=== PATIENT | male | born 1965 | race Caucasian/White ===

== ENCOUNTER 2017-06-02 16:05 | Emergency (ER) | payer BC ==
[2017-06-02 16:16] VITALS: BP 132/68; PULSE 76; RESP 18; TEMP 97.9; O2SAT 99
--- NOTE | 2017-06-02 17:46 | C.PDOC ---
History Of Present Illness 52 y/o male presents to ED for evaluation status post bumping back of head 2 days ago while at work. Patient reports normal po intake and denies loc, nausea , vomiting, vision changes or any other complaints at this time. - HPI Chief Complaint (Nursing): Trauma History Per: Patient History/Exam Limitations: no limitations Onset/Duration Of Symptoms: Days Past Medical History Reviewed: Historical Data, Nursing Documentation, Vital Signs Vital Signs: Last Vital Signs Temp 97.9 F 06/02/17 16:13 Pulse 76 06/02/17 16:13 Resp 18 06/02/17 16:13 BP 132/68 06/02/17 16:13 Pulse Ox 99 06/02/17 17:47 - Medical History PMH: No Chronic Diseases Surgical History: No Surg Hx Family History: States: No Known Family Hx - Social History Hx Alcohol Use: No Hx Substance Use: No - Immunization History Hx Tetanus Toxoid Vaccination: Yes Hx Influenza Vaccination: No Hx Pneumococcal Vaccination: No Review Of Systems Constitutional: Negative for: Fever, Chills Eyes: Negative for: Vision Change Gastrointestinal: Negative for: Nausea, Vomiting Skin: Negative for: Rash Neurological: Positive for: Headache. Negative for: Weakness, Numbness, Dizziness Physical Exam - Physical Exam Appears: Non-toxic, No Acute Distress Skin: Normal Color, Warm, Dry, No Rash Head: Atraumatic, Normacephalic, No Swelling, No Abrasion Eye(s): bilateral: Normal Inspection, PERRL, EOMI Oral Mucosa: Moist Chest: Symmetrical Cardiovascular: Rhythm Regular Respiratory: Normal Breath Sounds, No Rales, No Rhonchi, No Wheezing Gastrointestinal/Abdominal: Soft, No Tenderness, No Guarding, No Rebound Extremity: Normal ROM, Capillary Refill (<2 seconds) Neurological/Psych: Oriented x3, Normal Speech, Normal Cognition, Normal Motor, Normal Sensation Gait: Steady ED Course And Treatment O2 Sat by Pulse Oximetry: 99 (RA) Pulse Ox Interpretation: Normal Disposition - Disposition Referrals: [facility] [Outside] [facility] [Outside] Disposition: HOME/ ROUTINE Disposition Time: 16:30 Condition: GOOD Additional Instructions: Thank you for letting us take care of you today. The emergency medical care you received today was directed at your acute symptoms. If you were prescribed any medication, please fill it and take as directed. It may take several days for your symptoms to resolve. Return to the Emergency Department if your symptoms worsen, do not improve, or if you have any other problems. Please contact your doctor or call one of the physicians/clinics you have been referred to that are listed on the Patient Visit Information form that is included in your discharge packet. Bring any paperwork you were given at discharge with you along with any medications you are taking to your follow up visit. Our treatment cannot replace ongoing medical care by a primary care provider (PCP) outside of the emergency department. Thank you for allowing the [facility] team to be part of your care today. Follow up with your doctor in 3-5 days for outpatient care and management. Instructions: Head Injury (ED) Forms: Gen Discharge Inst Nepali Print Language: UKRAINIAN - Clinical Impression Clinical Impression: Head contusion - Scribe Statement The provider has reviewed the documentation as recorded by the Camilaibdelmi Griffin All medical record entries made by the Camilaibdelmi were at my direction and personally dictated by me. I have reviewed the chart and agree that the record accurately reflects my personal performance of the history, physical exam, medical decision making, and the department course for this patient. I have also personally directed, reviewed, and agree with the discharge instructions and disposition.
== END 2017-06-02 16:49 | disposition home or self-care (01) ==
LOC: C.ER 16:05
DX: S00.93XA Contusion of unspecified part of head, initial encounter (principal); W22.8XXA Striking against or struck by other objects, initial encounter; Y99.0 Civilian activity done for income or pay

== ENCOUNTER 2018-06-03 08:39 | Observation (INO) | payer BC ==
[2018-06-03 09:03] VITALS: BMI 25.0
--- NOTE | 2018-06-03 10:54 | C.PDOC ---
History Of Present Illness 53 year old male presents to the ED for evaluation of left calf pain which began three days ago. 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 Patient denies recent falls, direct injury/trauma to the area, or extremity numbness/weakness. Time Seen by Provider: 06/03/18 09:17 Chief Complaint (Nursing): Lower Extremity Problem/Injury History Per: Patient History/Exam Limitations: no limitations Onset/Duration Of Symptoms: Days (3) Current Symptoms Are (Timing): Still Present Additional History Per: Patient Past Medical History Reviewed: Historical Data, Nursing Documentation, Vital Signs Vital Signs: Last Vital Signs Temp 98.7 F 06/03/18 09:02 Pulse 90 06/03/18 09:02 Resp 18 06/03/18 09:02 BP 147/78 06/03/18 09:02 Pulse Ox 98 06/03/18 09:02 - Medical History PMH: Hypercholesterolemia (no meds as per patient) Surgical History: No Surg Hx Family History: States: Unknown Family Hx - Social History Hx Alcohol Use: No Hx Substance Use: No - Immunization History Hx Tetanus Toxoid Vaccination: Yes Hx Influenza Vaccination: No Hx Pneumococcal Vaccination: No Review Of Systems Musculoskeletal: Positive for: Other (left calf pain ) Neurological: Negative for: Weakness, Numbness Physical Exam - Physical Exam Appears: Non-toxic, No Acute Distress Skin: Normal Color, Warm, Dry, No Ecchymosis Extremity: Normal ROM, No Pedal Edema, Capillary Refill (less than 2 seconds ), Other (tenderness and edema to left medial calf ) Neurological/Psych: Oriented x3, Normal Speech, Normal Cognition, Normal Sensation ED Course And Treatment - Laboratory Results Result Diagrams: 06/03/18 11:48 06/03/18 11:48 Lab Interpretation: Abnormal (D-dimer 714 H) ECG: Interpreted By Nv ECG Rhythm: Sinus Rhythm ECG Interpretation: Normal Rate From EC O2 Sat by Pulse Oximetry: 98 (on RA) Pulse Ox Interpretation: Normal - Radiology CXR: Interpreted by Me CXR Interpretation: Yes: No Acute Disease Progress Note: Venous Duplex Scan of left lower extremity ordered and reviewed. Motrin PO given. Reevaluation Time: 12:22 Reassessment Condition: Improved - Physician Consult Information Outcome Of Conversation: 1215: d/w , Hospitalist covering pts for geoffrey Le to admit. Medical Decision Making Medical Decision Making: L leg DVT, unprovoked lovenox consider hypercoagulable w/u or underlying CA Disposition Doctor Will See Patient In The: Hospital Counseled Patient/Family Regarding: Studies Performed, Diagnosis - Disposition Disposition: HOSPITALIZED Disposition Time: 12:24 Condition: GOOD Forms: [facility] (Yakut) - Clinical Impression Clinical Impression: Deep venous thrombosis of lower extremity - Scribe Statement The provider has reviewed the documentation as recorded by the Scribe (Maite Gustafson) Provider Attestation: All medical record entries made by the Scribe were at my direction and personally dictated by me. I have reviewed the chart and agree that the record accurately reflects my personal performance of the history, physical exam, medical decision making, and the department course for this patient. I have also personally directed, reviewed, and agree with the discharge instructions and disposition.
[2018-06-03] MEDS ORDERED: Enoxaparin 40 mg Syringe SC STA (11:29)
[2018-06-03] MEDS ORDERED: Enoxaparin 40 mg Syringe ONE (11:52)
[2018-06-03] MEDS ORDERED: Enoxaparin 30 mg Syringe ONE (11:52)
[2018-06-03 12:00] LABS: BASO # 0.1 K/uL (0.0-0.2); BASO % 1.3 % (0.0-2.0); EOS # 0.4 K/uL (0.0-0.7); EOS % 5.8 % (0.0-4.0); HEMOGLOBIN 15.6 g/dL (12.0-18.0); LYMPH # 2.2 K/uL (1.0-4.3); LYMPH % 28.9 % (20.0-40.0); MEAN CELL VOLUME 85.6 fL (80.0-94.0); MEAN CORPUSCULAR HEMOGLOBIN 29.1 pg (27.0-31.0); MEAN PLATELET VOLUME 7.9 fL (7.2-11.7); MONO # 0.5 K/uL (0.0-0.8); MONO % 6.4 % (0.0-10.0); NEUT # 4.5 K/uL (1.8-7.0); NEUT % 57.6 % (50.0-75.0); NRBC % 0.1 % (0.0-2.0); RBC 5.38 Mil/uL (4.40-5.90); RED CELL DISTRIBUTION WIDTH 13.4 % (11.5-14.5); WHITE BLOOD COUNT 7.7 K/uL (4.8-10.8)
[2018-06-03 12:04] LABS: INR 1.1; PROTHROMBIN TIME 11.7 SECONDS (9.7-12.2)
[2018-06-03 12:10] LABS: ALB/GLOB RATIO 1.3 (1.0-2.1); ALBUMIN 4.3 g/dL (3.5-5.0); ALT/SGPT 38 U/L (21-72); AST/SGOT 26 U/L (17-59); BLOOD UREA NITROGEN 21 mg/dL (9-20); CALCIUM 8.6 mg/dl (8.6-10.4); GFR NON-AFRICAN AMERICAN > 60
[2018-06-03 12:32] LABS: B-TYPE NATRIURETIC PEPTIDE < 11.1 pg/mL (0-900)
--- NOTE | 2018-06-03 13:02 | RAD ---
HISTORY: SOB COMPARISON: No prior. TECHNIQUE: Chest, one view. FINDINGS: Examination limited by habitus and hypoinflation. LUNGS: No focal consolidation. Please note that chest x-ray has limited sensitivity for the detection of pulmonary masses. PLEURA: No significant pleural effusion identified. No definite pneumothorax . CARDIOVASCULAR: Mild cardiomegaly. Ectatic aorta. OSSEOUS STRUCTURES: Degenerative changes. VISUALIZED UPPER ABDOMEN: Unremarkable. OTHER FINDINGS: None. IMPRESSION: Mild cardiomegaly. Hypoinflation.
--- NOTE | 2018-06-03 13:39 | VASCLAB ---
Date of service: 06/03/2018 PROCEDURE: Lower Extremity Venous Duplex Exam. HISTORY: Left calf swelling, pain. PRIORS: None. TECHNIQUE: Bilateral common femoral, femoral, popliteal and posterior tibial, peroneal and great saphenous veins were evaluated. Flow was assessed with color Doppler, compressibility, assessment of phasic flow and augmentation response. Report prepared by ERNIE Briones FINDINGS: RIGHT: 1. Common Femoral Vein: 1.1. Compressibility - Fully compressible: Thrombus - None : Flow - Phasic: Augmentation -Normal: Reflux - None. 2. Femoral Vein: 2.1. Compressibility - Fully compressible: Thrombus - None : Flow - Phasic: Augmentation -Normal: Reflux - None. 3. Popliteal Vein: 3.1. Compressibility - Fully compressible: Thrombus - None : Flow - Phasic: Augmentation -Normal: Reflux - None. 4. Posterior Tibial Vein: 4.1. Compressibility - Fully compressible: Thrombus - None: Flow - Phasic: Augmentation -Normal: Reflux - None. 5. Peroneal Vein: 5.1. Compressibility - Fully compressible: Thrombus - None: Flow - Phasic: Augmentation -Normal: Reflux - None. 6. Great Saphenous Vein: 6.1. Compressibility - Fully compressible: Thrombus - None: Flow - Phasic: Augmentation - Normal: Reflux - None. LEFT: 1. Common Femoral Vein: 1.1. Compressibility - Fully compressible: Thrombus - None: Flow - Phasic: Augmentation -Normal: Reflux - None. 2. Femoral Vein: 2.1. Compressibility - Fully compressible: Thrombus - None: Flow - Phasic: Augmentation -Normal: Reflux - None. 3. Popliteal Vein: 3.1. Compressibility - Fully compressible: Thrombus - None : Flow - Phasic: Augmentation -Normal: Reflux - None. 4. Posterior Tibial Vein: 4.1. Compressibility - Fully compressible: Thrombus - None: Flow - Phasic: Augmentation -Normal: Reflux - None. 5. Peroneal Vein: 5.1. Compressibility - Incompressible: Thrombus - Acute: Flow - Absent 6. Great Saphenous Vein: 6.1. Compressibility - Fully compressible: Thrombus - None: Flow - Phasic: Augmentation - Normal: Reflux - None. OTHER FINDINGS: None. IMPRESSION: Right: No evidence of deep or superficial vein thrombosis of the right lower extremity. Normal valve function noted of the right side. Left: Acute deep vein thrombosis of the left peroneal veins, with severe reduction of the venous return. Findings were reported to emergency room nurse Jazmin Lebron, at 11:02 am.
--- NOTE | 2018-06-03 13:51 | CP.PCM.HP ---
History of Present Illness - History of Present Illness History of Present Illness: PGY1 History and Physical for hospitalist (Dr. Muir) CC: left lower leg pain This is a 53 year old male with PMH of hypercholesterolemia, gastritis who presents to the ED with left lower extremity pain for the past 3 days. Pain is d escribed as sharp, left medial calf pain, that is non-radiating. He denies fever, chills, chest pain, sob, palpitations, abdominal pain, n/v/d, trauma, bruising, prolonged immobility, travel, recent illness, car ride longer than 4 hours, hormone use, dizzines, dysuria, new exercises, recent surgery. Pt has no history of prior clot, but does have a history of smoking. PMD: Dr. 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, denies etoh (quit 20 years ago), denies illicit drug use Prevention: Pt had colonoscopy approximately 3 years ago which was normal as per pt Present on Admission - Present on Admission Any Indicators Present on Admission: No Review of Systems - Review of Systems All systems: reviewed and no additional remarkable complaints except (see HPI) - Musculoskeletal Musculoskeletal: Back Pain Past Patient History - Past Medical History & Family History Past Family History: Reviewed and not pertinent - Past Social History Smoking Status: Never Smoked - CARDIAC Hx Hypercholesterolemia: Yes (no meds as per patient) - PSYCHIATRIC Hx Substance Use: No - SURGICAL HISTORY Hx Surgeries: No - ANESTHESIA Hx Anesthesia: No Meds Allergies/Adverse Reactions: Allergies Allergy/AdvReac Type Severity Reaction Status Date / Time No Known Allergies Allergy Verified 06/02/17 16:16 Physical Exam - Constitutional Appears: Non-toxic, No Acute Distress - Head Exam Head Exam: ATRAUMATIC, NORMAL INSPECTION - Eye Exam Eye Exam: EOMI, Normal appearance - ENT Exam ENT Exam: Mucous Membranes Moist - Respiratory Exam Respiratory Exam: Clear to Auscultation Bilateral, NORMAL BREATHING PATTERN. absent: Decreased Breath Sounds, Rales, Rhonchi, Wheezes, Stridor - Cardiovascular Exam Cardiovascular Exam: REGULAR RHYTHM, +S1, +S2 - GI/Abdominal Exam GI & Abdominal Exam: Distended (baseline as per pt), Normal Bowel Sounds, Soft. absent: Firm, Guarding, Rebound, Rigid, Tenderness - Extremities Exam Extremities exam: Positive for: calf tenderness (left medial calf tendeness, popliteal tenderness), normal capillary refill (<2 seconds), pedal pulses present (2+ bilateral DPs and PTs). Negative for: pedal edema - Back Exam Back exam: NORMAL INSPECTION. absent: CVA tenderness (L), CVA tenderness (R) - Neurological Exam Neurological exam: Alert, Oriented x3 - Psychiatric Exam Psychiatric exam: Normal Affect, Normal Mood - Skin Skin Exam: Dry, Normal Color, Warm Results - Vital Signs Recent Vital Signs: Last Vital Signs Temp 98.2 F 06/03/18 12:56 Pulse 74 06/03/18 12:56 Resp 16 06/03/18 12:56 BP 117/74 06/03/18 12:56 Pulse Ox 99 06/03/18 12:56 - Labs Result Diagrams: 06/03/18 11:48 06/03/18 11:48 Labs: Laboratory Results - last 24 hr 06/03/18 06/03/18 06/03/18 11:48 11:48 11:48 WBC 7.7 RBC 5.38 Hgb 15.6 Hct 46.1 MCV 85.6 MCH 29.1 MCHC 34.0 RDW 13.4 Plt Count 196 MPV 7.9 Neut % (Auto) 57.6 Lymph % (Auto) 28.9 [place] % (Auto) 6.4 Eos % (Auto) 5.8 H Baso % (Auto) 1.3 Neut # (Auto) 4.5 Lymph # (Auto) 2.2 [place] # (Auto) 0.5 Eos # (Auto) 0.4 Baso # (Auto) 0.1 PT 11.7 INR 1.1 APTT 33 D-Dimer, Quantitative 714 H Sodium 137 Potassium 4.1 Chloride 105 Carbon Dioxide 23 Anion Gap 13 BUN 21 H Creatinine 0.7 L Est GFR ( Amer) > 60 Est GFR (Non-Af Amer) > 60 Random Glucose 99 Calcium 8.6 Total Bilirubin 0.6 AST 26 ALT 38 Alkaline Phosphatase 86 Troponin I < 0.0120 NT-Pro-B Natriuret Pep < 11.1 Total Protein 7.6 Albumin 4.3 Globulin 3.3 Albumin/Globulin Ratio 1.3 Assessment & Plan - Assessment and Plan (Free Text) Assessment: This is a 53 year old male with PMH of hypercholesterolemia, gastritis who presents with left calf pain for three days found to have unprovoked acute DVT in left peroneal veins. Plan: Acute DVT; unprovoked D-dimer 714 on admission PT/PTT/INR are wnl on admission Bilateral lower extremity duplex shows acute DVT in left peroneal veins with severe reduction of venous return Heme/oncology consulted, Dr. Joseph, will f/u with recs Pt received 1 dose of lovenox 70 units SC in the ED Continue therapeutic lovenox 70 units SC q12 EKG shows NSR at 66 as per ED physician Pt is hemodynamically stable; no tachycardia, no sob, no chest pain, afebrile (pleuritic or other) CXR shows mild cardiomegaly, hypoinflation PT/PTT/INR are wnl on admission F/u Factor V leiden, cardiolipin AB IgG/IgM, lupus anticoagulant, antiphospholipid AB, prothrombin gene analysis F/u Stat Chest CTA, abd/pelv CT with IV contrast to r/o PE and occult malignancy contributing to formation of DVT Abnormal EKG on admission EKG shows NSR at 66; q wave in leds II and III F/u pro bnp F/u echocardiogram Hx of hypercholesterolemia f/u lipid panel in am PPX: VTE: pt is on therapeutic lovenox; SCD on to the right lower extremity GI: protonix 40 mg PO daily Diet: HHD Dispo: Observation; treat with therapeutic lovenox; Transition to oral AC pending w/u Case was discussed with attending physician, Dr. Wood Weinberg PGY1
[2018-06-03] MEDS ORDERED: Iodixanol 320 MG/ML 100 ML BOTTLE IV ONE (16:50)
[2018-06-03 17:53] VITALS: RESP 20
--- NOTE | 2018-06-03 18:06 | CT ---
Date of service: 06/03/2018 PROCEDURE: CT Chest with contrast (Pulmonary Angiogram) HISTORY: r/o PE, r/o malignancy; admitted for acute DVT COMPARISON: None available. TECHNIQUE: Axial computed tomography images were obtained of the chest in the pulmonary arterial phase of enhancement. Coronal and sagittal reformatted images were created and reviewed. Intravenous contrast dose: Radiation dose: Total exam DLP = 544.28 mGy-cm. This CT exam was performed using one or more of the following dose reduction techniques: Automated exposure control, adjustment of the mA and/or kV according to patient size, and/or use of iterative reconstruction technique. FINDINGS: PULMONARY ARTERIES: There are no filling defects in the pulmonary arteries to suggest acute pulmonary embolism. AORTA: No acute findings. No thoracic aortic aneurysm. No aortic atherosclerotic calcification or mural plaque present. LUNGS: The lungs are well inflated and clear. There is a 2 mm noncalcified nodule in the right middle lobe (series 4, image 58). There is dependent atelectasis in the lung bases. No nodule, mass or pulmonary consolidation. PLEURAL SPACES: No effusion or pneumothorax. HEART: No cardiomegaly. No significant pericardial effusion. LYMPH NODES: No pathologic mediastinal or hilar lymphadenopathy. BONES, CHEST WALL: Within normal limits for the patient's age. No fracture or destructive lesion OTHER FINDINGS: There is a moderate sliding hiatal hernia. IMPRESSION: No CTA evidence for acute pulmonary embolism. Clear lungs. Moderate sliding hiatal hernia.
--- NOTE | 2018-06-03 18:08 | CT ---
Date of service: 06/03/2018 PROCEDURE: CT Abdomen and Pelvis with contrast HISTORY: r/o malignancy; admitted for unprovoked acute DVT COMPARISON: 02/28/2016. CT abdomen and pelvis TECHNIQUE: Intravenous contrast dose: 100 cc Visipaque 320. Radiation dose: Total exam DLP = 1057.00 mGy-cm. This CT exam was performed using one or more of the following dose reduction techniques: Automated exposure control, adjustment of the mA and/or kV according to patient size, and/or use of iterative reconstruction technique. FINDINGS: LOWER THORAX: Small hiatal hernia. 3 mm pulmonary nodule lateral segment right middle lobe. An additional 2 mm nodule identified in the basilar segment of the left lower lobe. LIVER: Hepatic steatosis. No focal masses. No intrahepatic bile duct dilatation or perihepatic ascites. GALLBLADDER AND BILE DUCTS: Unremarkable. PANCREAS: Unremarkable. No gross lesion or ductal dilatation. SPLEEN: Unremarkable. ADRENALS: Unremarkable. No mass. KIDNEYS AND URETERS: Unremarkable. No hydronephrosis. No solid mass. VASCULATURE: Atherosclerotic calcification and mural plaque present. Findings are seen throughout the aorta BOWEL: Unremarkable. No obstruction. No gross mural thickening. APPENDIX: Normal appendix. PERITONEUM: Unremarkable. No free fluid. No free air. LYMPH NODES: Unremarkable. No enlarged lymph nodes. BLADDER: Unremarkable. REPRODUCTIVE: Unremarkable. BONES: No acute fracture. OTHER FINDINGS: None. IMPRESSION: No significant or acute findings to account for/ related to the clinical presentation. Additional benign and/or incidental findings described above. No significant interval change compared to the prior examination(s).
--- NOTE | 2018-06-03 19:57 | CP.PCM.CON ---
History of Present Illness - History of Present Illness History of Present Illness: This is a 53 year old male with PMH of hypercholesterolemia, gastritis who presents to the ED with left lower extremity pain for the past 3 days. Pain is described as sharp, left medial calf pain, that is non-radiating. He denies fever, chills, chest pain, sob, palpitations, abdominal pain, n/v/d, trauma, bruising, prolonged immobility, travel, recent illness, car ride longer than 4 hours, hormone use, dizziness, dysuria, new exercises, recent surgery. Pt has no history of prior clot, but does have a history of smoking. The patient says his was massaging his leg for the three days he had the pain, denies SOB, fever, chills. PMD: Dr. 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, denies etoh (quit 20 years ago), denies illicit drug use Prevention: Pt had colonoscopy approximately 3 years ago which was normal as per pt Past Patient History - Past Medical History & Family History Past Family History: Reviewed and not pertinent - Past Social History Smoking Status: Never Smoked - CARDIAC Hx Hypercholesterolemia: Yes (no meds as per patient) - PSYCHIATRIC Hx Substance Use: No - SURGICAL HISTORY Hx Surgeries: No - ANESTHESIA Hx Anesthesia: No Meds Allergies/Adverse Reactions: Allergies Allergy/AdvReac Type Severity Reaction Status Date / Time No Known Allergies Allergy Verified 06/02/17 16:16 - Medications Medications: Current Medications Enoxaparin Sodium (Lovenox) 70 mg SC Q12 NIEVES Influenza Virus Vaccine (Fluzone Quad 0314-1933) 60 mcg IM .ONCE ONE Stop: 06/05/18 10:01 Pantoprazole Sodium (Protonix Ec Tab) 40 mg PO DAILY NIEVES Pneumococcal Polyvalent Vaccine (Pneumovax 23 Vaccine) 0.5 ml IM .ONCE ONE Stop: 06/05/18 10:01 Results - Vital Signs Recent Vital Signs: Last Vital Signs Temp 98.1 F 12/05/18 16:00 Pulse 79 06/03/18 16:00 Resp 20 06/03/18 16:00 BP 125/75 06/03/18 16:00 Pulse Ox 96 06/03/18 16:00 - Labs Result Diagrams: 06/03/18 11:48 06/03/18 11:48 Labs: Laboratory Results - last 24 hr 06/03/18 06/03/18 06/03/18 11:48 11:48 11:48 WBC 7.7 RBC 5.38 Hgb 15.6 Hct 46.1 MCV 85.6 MCH 29.1 MCHC 34.0 RDW 13.4 Plt Count 196 MPV 7.9 Neut % (Auto) 57.6 Lymph % (Auto) 28.9 [place] % (Auto) 6.4 Eos % (Auto) 5.8 H Baso % (Auto) 1.3 Neut # (Auto) 4.5 Lymph # (Auto) 2.2 [place] # (Auto) 0.5 Eos # (Auto) 0.4 Baso # (Auto) 0.1 PT 11.7 INR 1.1 APTT 33 D-Dimer, Quantitative 714 H Sodium 137 Potassium 4.1 Chloride 105 Carbon Dioxide 23 Anion Gap 13 BUN 21 H Creatinine 0.7 L Est GFR ( Amer) > 60 Est GFR (Non-Af Amer) > 60 Random Glucose 99 Calcium 8.6 Total Bilirubin 0.6 AST 26 ALT 38 Alkaline Phosphatase 86 Troponin I < 0.0120 NT-Pro-B Natriuret Pep < 11.1 Total Protein 7.6 Albumin 4.3 Globulin 3.3 Albumin/Globulin Ratio 1.3 Assessment & Plan (1) Deep venous thrombosis of lower extremity Assessment and Plan: 53 yo man with seemingly unprovoked DVT of the left lower extremity, only risk factor is prolonged standing. The scans of the chest, abdomen and pelvis are normal. Plan- Recommend starting NOAC on discharge. Follow up results of thrombophilia testing. Would continue anticoagulation for at least 3 months, pending above results. Would also advise patient regarding breaks every 2-3 hours, use of compression stockings, avoidance of dehydration and personal counselor patient regarding smoking cessation. Status: Acute
[2018-06-03] MEDS: Enoxaparin 80 mg Syringe SC SCH (21:36)
[2018-06-04 07:13] LABS: BASO # 0.1 K/uL (0.0-0.2); EOS # 0.7 K/uL (0.0-0.7); EOS % 11.8 % (0.0-4.0); HEMOGLOBIN 15.9 g/dL (12.0-18.0); LYMPH # 2.1 K/uL (1.0-4.3); LYMPH % 34.3 % (20.0-40.0); MEAN CELL VOLUME 86.8 fL (80.0-94.0); MEAN CORPUSCULAR HEMOGLOBIN 30.1 pg (27.0-31.0); MEAN CORPUSCULAR HGB CONC 34.7 g/dL (33.0-37.0); MEAN PLATELET VOLUME 8.1 fL (7.2-11.7); MONO # 0.5 K/uL (0.0-0.8); MONO % 8.6 % (0.0-10.0); NEUT # 2.8 K/uL (1.8-7.0); NEUT % 44.3 % (50.0-75.0); NRBC % 0.1 % (0.0-2.0); RBC 5.27 Mil/uL (4.40-5.90); RED CELL DISTRIBUTION WIDTH 13.8 % (11.5-14.5); WHITE BLOOD COUNT 6.2 K/uL (4.8-10.8)
[2018-06-04 07:39] LABS: B-TYPE NATRIURETIC PEPTIDE < 11.1 pg/mL (0-900)
[2018-06-04 08:07] LABS: LDL CHOLESTEROL 193 mg/dL (0-129)
[2018-06-04 08:10] LABS: ALB/GLOB RATIO 1.3 (1.0-2.1); ALBUMIN 4.1 g/dL (3.5-5.0); ALT/SGPT 37 U/L (21-72); AST/SGOT 20 U/L (17-59); BLOOD UREA NITROGEN 21 mg/dL (9-20); CALCIUM 8.8 mg/dl (8.6-10.4); GFR NON-AFRICAN AMERICAN > 60; HDL CHOLESTEROL 40 mg/dL (30-70)
--- NOTE | 2018-06-04 09:34 | CP.PCM.PN ---
Subjective - Date & Time of Evaluation Date of Evaluation: 06/04/18 Time of Evaluation: 09:34 - Subjective Subjective: PGY1 Medicine progress note for Dr. Muir Pt was seen and examined at bedside. Pt is resting comfortably, has no complaints at this time. He is ambulating without difficulty and reports improvement of left medial calf pain. Denies fever, chills, chest pain, sob, palpitations, visual changes, headache, dizziness, lightheadedness, dysuria, hematuria, abdominal pain, hematochezia, melena, hemoptysis, ecchymoses or new bleeding. Objective - Vital Signs/Intake and Output Vital Signs (last 24 hours): Temp Pulse Resp BP Pulse Ox 98.0 F 69 20 127/79 98 06/04/18 07:00 06/04/18 07:00 06/04/18 07:00 06/04/18 07:00 06/04/18 07:00 Intake and Output: 06/04/18 06/04/18 06:59 18:59 Intake Total 300 Balance 300 - Medications Medications: Current Medications Enoxaparin Sodium (Lovenox) 70 mg SC Q12 [facility] Last Admin: 06/03/18 21:36 Dose: 70 mg Influenza Virus Vaccine (Fluzone Quad [id number]) 60 mcg IM .ONCE ONE Stop: 06/05/18 10:01 Pantoprazole Sodium (Protonix Ec Tab) 40 mg PO DAILY [facility] Pneumococcal Polyvalent Vaccine (Pneumovax 23 Vaccine) 0.5 ml IM .ONCE ONE Stop: 06/05/18 10:01 - Labs Labs: 06/04/18 06:58 06/04/18 06:58 PT 11.7 SECONDS (9.7-12.2) 06/03/18 11:48 INR 1.1 06/03/18 11:48 APTT 33 SECONDS (21-34) 06/03/18 11:48 - Head Exam Head Exam: ATRAUMATIC, NORMAL INSPECTION - Eye Exam Eye Exam: EOMI, Normal appearance - ENT Exam ENT Exam: Mucous Membranes Moist - Neck Exam Neck Exam: Full ROM - Respiratory Exam Respiratory Exam: Clear to Ausculation Bilateral. absent: Rales, Rhonchi, Wheezes, Stridor - Cardiovascular Exam Cardiovascular Exam: REGULAR RHYTHM, +S1, +S2. absent: Tachycardia - GI/Abdominal Exam GI & Abdominal Exam: Soft, Normal Bowel Sounds. absent: Distended, Firm, Guarding, Rigid, Tenderness - Extremities Exam Extremities Exam: Calf Tenderness (mild left medial calf tenderness; no erythema, swelling, palpable cord; (-) popliteal tenderness), Normal Capillary R efill, Normal Inspection. absent: Pedal Edema Additional comments: 2+ bilateral lower extremity DP pulses and Pt pulses Assessment and Plan - Assessment and Plan (Free Text) Assessment: This is a 53 year old male with PMH of hypercholesterolemia, gastritis who presents with left calf pain for three days found to have unprovoked acute DVT in left peroneal veins. Plan: Acute DVT; unprovoked D-dimer 714 on admission PT/PTT/INR are wnl on admission Bilateral lower extremity duplex shows acute DVT in left peroneal veins with severe reduction of venous return Heme/oncology consulted, Dr. Joseph NOAC for 3 months pending results of labs Continue therapeutic lovenox 70 units SC q12 EKG shows NSR at 66 as per ED physician Pt is hemodynamically stable; no tachycardia, no sob, no chest pain, afebrile (pleuritic or other) CXR shows mild cardiomegaly, hypoinflation PT/PTT/INR are wnl on admission Chest CTA shows no CTA evidence for acute PE Abd/Pelv CT with contrast shows no acute findings to account for clinical presentation; 2 lung nodules (2-3mm) found incidentally F/u Factor V leiden, cardiolipin AB IgG/IgM, lupus anticoagulant, antiphospholipid AB, prothrombin gene analysis Pt instructed to take breaks every 3-4 hours, wear compresion stocking, avoid dehydration and to continue smoking cessation Abnormal EKG on admission EKG shows NSR at 66; q wave in leads II and III ProBNP is normal F/u echocardiogram Hx of hypercholesterolemia TG/CHL/LDL/HDL is 240/271/193/40 Will start Crestor 20 mg PO QHS Pt encouraged to exercise and make healthy diet changes as well PPX: VTE: pt is on therapeutic lovenox; SCD on to the right lower extremity GI: protonix 40 mg PO daily Diet: HHD Dispo: Observation; treat with therapeutic lovenox; Transition to oral AC pending w/u Case was discussed with attending physician, Dr. Wood Weinberg PGY1
[2018-06-04] MEDS: Enoxaparin 80 mg Syringe SC SCH (09:49)
[2018-06-04] MEDS ORDERED: Pantoprazole 40 mg EC Tab PO SCH (10:00)
--- NOTE | 2018-06-04 14:08 | CP.PCM.DIS ---
Provider - Provider Date of Admission: 06/03/18 12:21 Attending physician: Miladys Muir DO Consults: 06/03/18 13:42 Hematology Oncology Consult Routine Comment: Consulting Provider: Negar Joseph Consulting Physician: Negar Joseph Reason for Consult: unprovoked dvt Time Spent in preparation of Discharge (in minutes): 35 Hospital Course - Lab Results Lab Results: Most Recent Lab Values WBC 6.2 K/uL (4.8-10.8) 06/04/18 06:58 RBC 5.27 Mil/uL (4.40-5.90) 06/04/18 06:58 Hgb 15.9 g/dL (12.0-18.0) 06/04/18 06:58 Hct 45.7 % (35.0-51.0) 06/04/18 06:58 MCV 86.8 fL (80.0-94.0) 06/04/18 06:58 MCH 30.1 pg (27.0-31.0) 06/04/18 06:58 MCHC 34.7 g/dL (33.0-37.0) 06/04/18 06:58 RDW 13.8 % (11.5-14.5) 06/04/18 06:58 Plt Count 213 K/uL (130-400) 06/04/18 06:58 MPV 8.1 fL (7.2-11.7) 06/04/18 06:58 Neut % (Auto) 44.3 % (50.0-75.0) L 06/04/18 06:58 Lymph % (Auto) 34.3 % (20.0-40.0) 06/04/18 06:58 Turner % (Auto) 8.6 % (0.0-10.0) 06/04/18 06:58 Eos % (Auto) 11.8 % (0.0-4.0) H 06/04/18 06:58 Baso % (Auto) 1.0 % (0.0-2.0) 06/04/18 06:58 Neut # (Auto) 2.8 K/uL (1.8-7.0) 06/04/18 06:58 Lymph # (Auto) 2.1 K/uL (1.0-4.3) 06/04/18 06:58 Turner # (Auto) 0.5 K/uL (0.0-0.8) 06/04/18 06:58 Eos # (Auto) 0.7 K/uL (0.0-0.7) 06/04/18 06:58 Baso # (Auto) 0.1 K/uL (0.0-0.2) 06/04/18 06:58 PT 11.7 SECONDS (9.7-12.2) 06/03/18 11:48 INR 1.1 06/03/18 11:48 APTT 33 SECONDS (21-34) 06/03/18 11:48 D-Dimer, Quantitative 714 ng/mlDDU (0-243) H 06/03/18 11:48 Sodium 137 mmol/L (132-148) 06/04/18 06:58 Potassium 4.2 mmol/L (3.6-5.2) 06/04/18 06:58 Chloride 101 mmol/L (98-107) 06/04/18 06:58 Carbon Dioxide 25 mmol/L (22-30) 06/04/18 06:58 Anion Gap 14 (10-20) 06/04/18 06:58 BUN 21 mg/dL (9-20) H 06/04/18 06:58 Creatinine 0.7 mg/dL (0.8-1.5) L 06/04/18 06:58 Est GFR ( Amer) > 60 06/04/18 06:58 Est GFR (Non-Af Amer) > 60 06/04/18 06:58 Random Glucose 116 mg/dL (75-110) H 06/04/18 06:58 Calcium 8.8 mg/dl (8.6-10.4) 06/04/18 06:58 Phosphorus 3.1 mg/dL (2.5-4.5) 06/04/18 06:58 Magnesium 2.2 mg/dL (1.6-2.3) 06/04/18 06:58 Total Bilirubin 0.8 mg/dL (0.2-1.3) 06/04/18 06:58 AST 20 U/L (17-59) 06/04/18 06:58 ALT 37 U/L (21-72) 12/06/18 06:58 Alkaline Phosphatase 72 U/L (38-126) 06/04/18 06:58 Troponin I < 0.0120 ng/mL (0.00-0.120) 06/03/18 11:48 NT-Pro-B Natriuret Pep < 11.1 pg/mL (0-900) 06/04/18 06:58 Total Protein 7.4 g/dL (6.3-8.3) 06/04/18 06:58 Albumin 4.1 g/dL (3.5-5.0) 06/04/18 06:58 Globulin 3.3 gm/dL (2.2-3.9) 06/04/18 06:58 Albumin/Globulin Ratio 1.3 (1.0-2.1) 06/04/18 06:58 Triglycerides 240 mg/dL (0-149) H 06/04/18 06:58 Cholesterol 271 mg/dL (0-199) H 06/04/18 06:58 LDL Cholesterol Direct 193 mg/dL (0-129) H 06/04/18 06:58 HDL Cholesterol 40 mg/dL (30-70) 06/04/18 06:58 - Hospital Course Hospital Course: On admission: CC: left lower leg pain This is a 53 year old male with PMH of hypercholesterolemia, gastritis who presents to the ED with left lower extremity pain for the past 3 days. Pain is described as sharp, left medial calf pain, that is non-radiating. He denies fever, chills, chest pain, sob, palpitations, abdominal pain, n/v/d, trauma, bruising, prolonged immobility, travel, recent illness, car ride longer than 4 hours, hormone use, dizzines, dysuria, new exercises, recent surgery. Pt has no history of prior clot, but does have a history of smoking. Hospital course: Lower extremity doppler showed DVT in left peroneal veins. Pt was started on therapeutic lovenox. Dr. Joseph, Heme/onc, was consulted who recommended pt be on NOAC for 3 months, pending hypercoagulability work up results. Echocardiogram was ordered. Chest CT and Abd/pelv CT showed no concerning findings (see reading below). On discharge, pt reports improvement of left calf pain. Denies fever, chills, headache, dizziness, lightheadedness, chest pain, palpitations, sob, abdominal pain, v/d/d, hematochezia or any bleeding. Pt will be discharged with statin due to dyslipidemia noted during hospitalization, and prescription for NOAC. Pt given instructions on how to prevent DVT occurrence, prevent GI bleeding, and informed to follow up with his PMD and heme/onc. Images: Chest CTA 06/03: no CTA evidence for acute PE Abd/pelv CT 06/03: no acute findings to account for clinical presentation; 2 lung nodules (2-3mm) found incidentally This is a summary of the hospital course, please see EMR for full details. Discharge Exam - Head Exam Head Exam: ATRAUMATIC, NORMAL INSPECTION - Eye Exam Eye Exam: EOMI, Normal appearance - ENT Exam ENT Exam: Mucous Membranes Moist - Respiratory Exam Respiratory Exam: Clear to PA & Lateral, NORMAL BREATHING PATTERN. absent: Rales, Rhonchi, Wheezes, Stridor - Cardiovascular Exam Cardiovascular Exam: REGULAR RHYTHM, +S1, +S2. absent: Tachycardia, Diastolic murmur, Irregular Rhythm, Systolic Murmur - GI/Abdominal Exam GI & Abdominal Exam: Normal Bowel Sounds, Soft. absent: Distended, Firm, Guarding, Rebound, Rigid, Tenderness - Extremities Exam Extremities exam: calf tenderness (left medial calf tenderness; no erythema, swelling, palpable cord; popliteal area is nontender. Right lower extremity is wnl.), normal capillary refill Additional comments: No lower extremity edema; 2+ DP and PT pulses bilateral lower extremities. - Neurological Exam Neurological exam: Alert, Normal Gait, Oriented x3 - Psychiatric Exam Psychiatric exam: Normal Affect, Normal Mood - Skin Skin Exam: Dry, Normal Color, Warm Discharge Plan - Discharge Medications Prescriptions: Apixaban [Eliquis] 10 mg PO BID 7 Days #28 tab Rivaroxaban [Xarelto] 15 mg PO DAILY #21 tab Rosuvastatin Calcium [Crestor] 5 mg PO HS #14 tab - Follow Up Plan Condition: GOOD Disposition: HOME/ ROUTINE Additional Instructions: Patient is medically stable for discharge home as per Dr. Muir. Pt should continue to take previously prescribed Zantac every day. Patient should not take aspirin. Additionally, pt should take 2 tabs of 5 mg Eliquis at 8 am and 2 tabs of 5 mg Eliquis at 8 pm everyday for total of 7 days. Please take 1 tab of 15 mg Xarelto everyday for total of 21 days. Please take Crestor 5 mg 1 tab by mouth every night. To avoid any further clots, it is important to take a break and stretch and move around every 2-3 hours, wear compression stockings, avoid dehydration and drink plenty of water, and do not smoke. Patient should have a repeat Chest CT in 6m to 1 year due to 2-3 mm pulmonary nodules noted during hospitalization. Please follow up with Dr. Joseph regarding labs drawn during admission. Please follow up with Dr. Barclay within 1 week of discharge. Should symptoms worsen, please return to the nearest Emergency Department for further evaluation. Instructions explained to the patient, who understands and agrees with discharge plan. Referrals: Jerod Barclay MD [Staff Provider] - Negar Joseph MD [Staff Provider] -
[2018-06-04 16:02] VITALS: BP 123/74; PULSE 80; TEMP 97.8; O2SAT 97
[2018-06-04] MEDS ORDERED: Pneumococcal 23-Valent Vaccine IM ONE (16:30)
[2018-06-04] MEDS ORDERED: Influenza Vaccine 60 MCG/0.5 ML SYR (3 yr & up) IM ONE (16:30)
--- NOTE | 2018-06-04 22:10 | CARD ---
APPROVED REPORT Date of service: 06/03/2018 EKG Measurement Heart [id number] <Conclusion> Normal sinus rhythm Incomplete right bundle branch block Borderline ECG
--- NOTE | 2018-06-05 07:41 | CARD ---
APPROVED REPORT Date of service: 06/04/2018 EXAM: Two-dimensional and M-mode echocardiogram with Doppler and color Doppler. INDICATION Abnormal EKG/Arrhythmia RISK FACTORS Hypertension 2D DIMENSIONS IVSd0.9 (0.7-1.1cm)LVDd4.4 (3.9-5.9cm) PWd1.0 (0.7-1.1cm)LA [id number] (18-58mL) LVDs3.0 (2.5-4.0cm)FS (%) 32.1 % LVEF (%)60.4 (>50%)LVEF (Blancas's)67.31 % M-Mode DIMENSIONS Left Atrium (MM)3.34 (2.5-4.0cm)IVSd0.87 (0.7-1.1cm) Aortic Root3.25 (2.2-3.7cm)LVDd5.05 (4.0-5.6cm) Aortic Cusp Exc.2.08 (1.5-2.0cm)PWd0.94 (0.7-1.1cm) FS (%) 35 %LVDs3.27 (2.0-3.8cm) LVEF (%)64 (>50%) Mitral Valve MV E Nseenemz80.8cm/sMV A Otqsovva66.8cm/sE/A ratio0.9 TDI Lateral E' Peak V15.96cm/sMedial E' Peak V8.16cm/sE/Lateral E'4.1 E/Medial E'7.9 Tricuspid Valve TR Peak [id number]/sTR Peak [id number] LEFT VENTRICLE The left ventricle is normal size. There is normal left ventricular wall thickness. Left ventricle systolic function is normal. The Ejection Fraction is 60-65%. There is normal LV segmental wall motion. Tissue Doppler imaging reveals abnormal left ventricular diastolic dysfunction. RIGHT VENTRICLE The right ventricle is normal size. There is normal right ventricular wall thickness. The right ventricular systolic function is normal. ATRIA The left atrium size is normal. The right atrium size is normal. The interatrial septum is intact with no evidence for an atrial septal defect. AORTIC VALVE The aortic valve is normal in structure. No aortic regurgitation is present. There is no aortic valvular stenosis. There is no aortic valvular vegetation. MITRAL VALVE The mitral valve is normal in structure. There is no evidence of mitral valve prolapse. There is no mitral valve stenosis. Mitral regurgitation is mild. TRICUSPID VALVE The tricuspid valve is normal in structure. There is trace to mild tricuspid regurgitation. Right ventricular systolic pressure is estimated at less than 30 mmHg. There is no pulmonary hypertension. PULMONIC VALVE The pulmonic valve is not well visualized. There is no pulmonic valvular regurgitation. GREAT VESSELS The aortic root is normal in size. PERICARDIAL EFFUSION There is no significant pericardial effusion. <Conclusion> Left ventricle systolic function is normal. The Ejection Fraction is 60-65%. Diastolic dysfunction. No aortic regurgitation is present. Mitral regurgitation is mild. There is trace to mild tricuspid regurgitation. There is no pulmonary hypertension. There is no pulmonic valvular regurgitation.
== END 2018-06-04 17:25 | disposition home or self-care (01) ==
LOC: C.ER 08:39 → C.9E 12:21 → C.3T 12:34
PROVIDERS: ADMIT Hospitalist; ATTEND Hospitalist
DX: I82.4Z2 Acute embolism and thrombosis of unspecified deep veins of left distal lower extremity (principal); E78.00 Pure hypercholesterolemia, unspecified; Z87.891 Personal history of nicotine dependence; Z83.3 Family history of diabetes mellitus
CPT/HCPCS: 36415; 71045; 71275; 74177; 80053; 80061; 81240; 81241; 83735; 83880; 84100; 84484; 85025; 85378; 85598; 85610; 85613; 85730; 86146; 86147; 86148; 90732; 93005; 93306; 93970; 96372; 99284; G0009; G0378; J1650; Q9967